=== PATIENT | female | born 1970 | race Caucasian/White ===

== ENCOUNTER 2019-12-11 20:16 | Emergency (ER) | payer MEDICAID ==
[~2019-12-11] VITALS: Ht 162.6 cm; Wt 68.0 kg
[2019-12-11 20:26] VITALS: BP 119/77
[2019-12-11] MEDS ORDERED: HYDROcodone-ACET 10/325MG TAB PO ONE (23:15)
[2019-12-11] MEDS ORDERED: traMADol HCL 50 MG TAB PO ONE (23:15)
== END 2019-12-11 23:16 | disposition home or self-care (01) ==
LOC: EDBD 20:16 → ER 20:21
DX: S52.592A Other fractures of lower end of left radius, initial encounter for closed fracture (principal); S52.615A Nondisplaced fracture of left ulna styloid process, initial encounter for closed fracture; F17.210 Nicotine dependence, cigarettes, uncomplicated; W01.0XXA Fall on same level from slipping, tripping and stumbling without subsequent striking against object, initial encounter; Y93.89 Activity, other specified; Y92.89 Other specified places as the place of occurrence of the external cause; Y99.8 Other external cause status
CPT/HCPCS: 29125; 73070; 73090; 73100